=== PATIENT | female | born 1980 | race Two or more races ===

== ENCOUNTER 2018-12-28 00:27 | Emergency (ER) | payer MEDICAID ==
[~2018-12-28] VITALS: Ht 160 cm; Wt 57.3 kg
[2018-12-28 01:45] VITALS: BP 117/79
== END 2018-12-28 02:23 | disposition left against medical advice (07) ==
LOC: ER 00:34
DX: R07.89 Other chest pain (principal); Z53.21 Procedure and treatment not carried out due to patient leaving prior to being seen by health care provider
CPT/HCPCS: 71045; 93005